=== PATIENT | female | born 1990 | race Caucasian/White ===

== ENCOUNTER 2017-03-19 13:41 | Emergency (ER) | payer SELFPAY ==
[2017-03-19] MEDS ORDERED: Ketorolac 60 MG/2 ML SDV IM ONE (16:13)
--- NOTE | 2017-03-19 16:13 | EDM.PDOC ---
ED HPI GENERAL MEDICAL PROBLEM - General Chief Complaint: Lower Extremity Injury/Pain Stated Complaint: HURT ANKLE Time Seen by Provider: 03/19/17 14:30 Source of Information: Reports: Patient History Limitations: Reports: No Limitations - History of Present Illness INITIAL COMMENTS - FREE TEXT/NARRATIVE: HISTORY AND PHYSICAL: History of present illness: [Patient slipped while getting out of her pickup late this morning rolling her right ankle. She is unable to bear weight due to pain. Cannot ambulate or move her ankle due to pain. She is brought in by her . She is taking no medication for her symptoms. No numbness or tingling just pain about the right ankle and lower leg.] Review of systems: As per history of present illness and below otherwise all systems reviewed and negative. Past medical history: As per history of present illness and as reviewed below otherwise noncontributory. Surgical history: As per history of present illness and as reviewed below otherwise noncontributory. Social history: No reported history of drug or alcohol abuse. Family history: As per history of present illness and as reviewed below otherwise noncontributory. Physical exam: HEENT: Atraumatic, normocephalic., pupils reactive, negative for conjunctival pallor or scleral icterus, mucous membranes moist, throat clear, neck supple, nontender, trachea midline. Lungs: Clear to auscultation, breath sounds equal bilaterally, chest nontender. Heart: S1S2, regular, negative for clicks, rubs, or JVD. Abdomen: Soft, nondistended, nontender. Negative for masses or hepatosplenomegaly. Negative for costovertebral tenderness. Pelvis: Stable nontender. Genitourinary: Deferred. Rectal: Deferred. Extremities: Swelling and ecchymosis is appreciated to the right lateral malleolus. Is exquisitely tender with palpation. Does not perform range of motion and requests due to pain. Pulses are strong. Cap refill less than 2 seconds. Neurovascular unremarkable. Neuro: Awake, alert, oriented. Motor and sensory unremarkable throughout. Exam nonfocal. Diagnostics: [Right tib-fib x-ray, right ankle x-ray, right foot x-ray] Therapeutics: [Toradol 60 mg IM] Impression: [Right ankle pain] Plan: [X-rays are negative for fracture. Recommmend Rest ice and anti-inflammatories elevation. She is given a walking boot and instructed to wear as much as possible. Crutches as needed. Discussed need for follow-up with local PCP. She is in agreement with today's plan all questions are answered concerns are addressed.] Definitive disposition and diagnosis as appropriate pending reevaluation and review of above. Right Ankle Pain Score (Numeric/FACES): 8 - Related Data Allergies Allergy/AdvReac Type Severity Reaction Status Date / Time No Known Allergies Allergy Verified 03/19/17 14:15 Home Meds: Home Meds . [No Known Home Meds] 03/19/17 [History] Past Medical History Cardiovascular History: Reports: Other (See Below) Other Cardiovascular History: mitral valve prolapse Musculoskeletal History: Reports: Other (See Below) Other Musculoskeletal History: Marfan syndrome - Infectious Disease History Infectious Disease History: Reports: Chicken Pox Social & Family History - Family History Family Medical History: Noncontributory - Tobacco Use Smoking Status *Q: Never Smoker - Recreational Drug Use Recreational Drug Use: No Review of Systems - Review of Systems Review Of Systems: ROS reveals no pertinent complaints other than HPI. ED EXAM, GENERAL - Physical Exam Exam: See Below Course - Vital Signs Last Recorded V/S: Last Vital Signs Temp 98.5 F 03/19/17 14:14 Pulse 107 H 03/19/17 14:14 Resp 16 03/19/17 14:14 BP 125/65 03/19/17 14:14 Pulse Ox 98 03/19/17 14:14 - Orders/Labs/Meds Orders: Active Orders 24 hr Category Date Time Status Ankle Min 3V Rt [CR] Stat Exams 03/19/17 14:42 Taken Foot 2V Rt [CR] Stat Exams 03/19/17 14:42 Taken Tibia Fibula Rt [CR] Stat Exams 03/19/17 14:42 Taken Labs: Laboratory Tests 03/19/17 Range/Units 14:55 HCG, Qual NEGATIVE (NEG) Meds: Medications Discontinued Medications Generic Name Dose Route Start Last Admin Trade Name Freq PRN Reason Stop Dose Admin Ketorolac Tromethamine 60 mg 03/19/17 16:13 03/19/17 16:46 Toradol IM 03/19/17 16:14 60 mg ONETIME ONE Administration Departure - Departure Time of Disposition: 16:40 Disposition: Home, Self-Care 01 Condition: Good Clinical Impression: Ankle pain, right - Discharge Information Instructions: Ankle Pain Referrals: PCP,Not In Area [Primary Care Provider] - Forms: ED Department Discharge Additional Instructions: The following information is given to patients seen in the emergency department who are being discharged to home. This information is to outline your options for follow-up care. We provide all patients seen in our emergency department with a follow-up referral. The need for follow-up, as well as the timing and circumstances, are variable depending upon the specifics of your emergency department visit. If you don't have a primary care physician on staff, we will provide you with a referral. We always advise you to contact your personal physician following an emergency department visit to inform them of the circumstance of the visit and for follow-up with them and/or the need for any referrals to a consulting specialist. The emergency department will also refer you to a specialist when appropriate. This referral assures that you have the opportunity for follow-up care with a specialist. All of these measure are taken in an effort to provide you with optimal care, which includes your follow-up. Under all circumstances we always encourage you to contact your private physician who remains a resource for coordinating your care. When calling for follow-up care, please make the office aware that this follow-up is from your recent emergency room visit. If for any reason you are refused follow-up, please contact the [facility] emergency department at and asked to speak to the emergency department charge nurse. [facility] Primary Care [address] [place] [id number] Establish care with a local primary care provider. Take Tylenol alternating with ibuprofen as needed for pain and discomfort. Rest, ice, elevate leg as much as possible. Take pain medication as prescribed. Return to ER as needed as discussed. - My Orders Last 24 Hours: My Active Orders 03/19/17 14:42 Ankle Min 3V Rt [CR] Stat Foot 2V Rt [CR] Stat Tibia Fibula Rt [CR] Stat - Assessment/Plan Last 24 Hours: My Active Orders 03/19/17 14:42 Ankle Min 3V Rt [CR] Stat Foot 2V Rt [CR] Stat Tibia Fibula Rt [CR] Stat
--- NOTE | 2017-03-20 13:03 | CR ---
EXAM DATE: 03/19/17 PATIENT'S AGE: 26 Patient: MONIKA CASTILLO Facility: [place], [place] Site . Site : 1990 Study: XRay Extremity Right TIB FIB [id number] 4:14:30 PM Ordering Physician: Doctor Vickers Final Report: Indication: Right ankle pain. Slipped on ice. Technique: Two views of the right tibia and fibula. Comparison: Today`s right ankle x-rays. Findings: No fracture or other abnormality. Impression: Negative right tibia and fibula. Dictated by Preet Covarrubias MD @ Mar 19 2017 4:15PM (Electronic Signature) Report Signed by Proxy. SVETLANA
--- NOTE | 2017-03-20 13:04 | CR ---
EXAM DATE: 03/19/17 PATIENT'S AGE: 26 Patient: MONIKA CASTILLO Facility: [place], [place] Site . Site : 1990 Study: XRay Extremity Right FOOT MW [id number] 4:16:44 PM Ordering Physician: Doctor Vickers Final Report: Indication: Right foot pain. Slipped on ice. Technique: Two views of the right foot. Comparison: Today`s right ankle x-rays. Findings: No soft tissue swelling, fracture or other abnormality. Impression: Negative right foot. Dictated by Preet Covarrubias MD @ Mar 19 2017 4:24PM (Electronic Signature) Report Signed by Proxy. SVETLANA
--- NOTE | 2017-03-20 13:05 | CR ---
EXAM DATE: 03/19/17 PATIENT'S AGE: 26 Patient: MONIKA CASTILLO Facility: [place], [place] Site . Site : 1990 Study: XRay Extremity Right ANKLE [id number] 4:17:27 PM Ordering Physician: Doctor Vickers Final Report: Indication: Right ankle pain. Slipped on ice. Technique: Three views of the right ankle. Comparison: Today`s right foot and tib-fib x-rays. Findings: Mild soft tissue swelling laterally. No fracture or other abnormality. Impression: Lateral ankle sprain. Dictated by Preet Covarrubias MD @ Mar 19 2017 4:23PM (Electronic Signature) Report Signed by Proxy. SVETLANA
== END 2017-03-19 17:08 | disposition home or self-care (01) ==
LOC: MW.ED 13:41
DX: S90.01XA Contusion of right ankle, initial encounter (principal); W00.0XXA Fall on same level due to ice and snow, initial encounter
CPT/HCPCS: 36415; 73590; 73610; 73620; 84703; 96372; 99283; J1885; 99282

== ENCOUNTER 2017-12-29 14:16 | Emergency (ER) | payer MEDICAID, OTHER ==
--- NOTE | 2017-12-29 14:39 | EDM.PDOC ---
ED HPI GENERAL MEDICAL PROBLEM - General Chief Complaint: General Stated Complaint: RECTAL PROBLEMS Time Seen by Provider: 12/29/17 14:34 Source of Information: Reports: Patient History Limitations: Reports: No Limitations - History of Present Illness INITIAL COMMENTS - FREE TEXT/NARRATIVE: HISTORY AND PHYSICAL: 27-year-old female presents with hemorrhoid pain History of Present Illness: []Patient has a hemorrhoid that is bothering her the [id number] medication is not working and she is going to ride in a car back to [place]. No other complaints Review of Systems: As per history of present illness and below otherwise all systems reviewed and negative. Past medical history: As per history of present illness and as reviewed below otherwise noncontributory. Surgical history: As per history of present illness and as reviewed below otherwise noncontributory. Social history: No reported history of drug or alcohol abuse. Family history: As per history of present illness and as reviewed below otherwise noncontributory. Physical exam: Alert and oriented female answering questions appropriately in full sentences without any shortness of breath. She is nontoxic in appearance. Vital signs have been reviewed. HEENT: Atraumatic, normocehpalic, pupils reactive, negative for conjunctival pallor or scleral icterus, mucous membranes moist, throat clear, neck supple, nontender, trachea midline. Lungs: Clear to auscultation, breath sounds equal bilaterally, chest non tender. Heart: S1S2, regular, negative for clicks, rubs, or JVD. Abdomen: Soft, nondistended, nontender. Negative for masses or hepatossplenmegaly. Negative for costovertebral tenderness. Pelvis: Stable nontender. Genitourinary: Deferred. Rectal: Small hemorrhoid at the 12 o'clock position is not thrombosed. Mild erythema. Extremities: Atraumatic, negative for cords or calf pain. Neurovascular unremarkable. Neuro: Awake, alert, oriented. Cranial nerves II through XII unremarkable. Cerebellum unremarkable. Motor and sensory unremarkable throughout. Exam nonfocal. Diagnostics: [] Therapeutics: [] Impression: []Hemorrhoid Plan: []Discharged home Sitz baths Proctocort HC cream follow up with your PCP next week. Definitive disposition and diagnosis as appropriate pending reevaluation and review of above. Onset: Sudden Duration: Day(s):, Getting Worse Location: Reports: Other (Docs) rectum Pain Score (Numeric/FACES): 8 - Related Data Allergies Allergy/AdvReac Type Severity Reaction Status Date / Time david arthur Allergy Rash Verified 12/29/17 14:25 Home Meds: Home Meds Hydrocortisone [Proctocort] 28.35 gm RC TID #1 cream..g. 12/29/17 [Rx] Past Medical History Cardiovascular History: Reports: Other (See Below) Other Cardiovascular History: mitral valve prolapse [employer] History: Reports: Musculoskeletal History: Reports: Other (See Below) Other Musculoskeletal History: Marfan syndrome - Infectious Disease History Infectious Disease History: Reports: Chicken Pox - Past Surgical History Cardiovascular Surgical History: Reports: None Female Surgical History: Reports: Section, Tubal Ligation Social & Family History - Family History Family Medical History: Noncontributory - Tobacco Use Smoking Status *Q: Never Smoker - Recreational Drug Use Recreational Drug Use: No ED ROS GENERAL - Review of Systems Review Of Systems: ROS reveals no pertinent complaints other than HPI. ED EXAM, GENERAL - Physical Exam Exam: See Below (see dictation) Course - Vital Signs Last Recorded V/S: Last Vital Signs Temp 36.6 C 12/29/17 14:26 Pulse 90 12/29/17 14:26 Resp 16 12/29/17 14:26 BP 122/87 12/29/17 14:26 Pulse Ox 97 12/29/17 14:26 Departure - Departure Time of Disposition: 14:37 Disposition: Home, Self-Care 01 Condition: Good Clinical Impression: Acute hemorrhoid - Discharge Information *PRESCRIPTION DRUG MONITORING PROGRAM REVIEWED*: Not Applicable *COPY OF PRESCRIPTION DRUG MONITORING REPORT IN PATIENT GRACE: Not Applicable Prescriptions: Hydrocortisone [Proctocort] 28.35 gm RC TID #1 cream..g. Referrals: PCP,None [Primary Care Provider] -
== END 2017-12-29 15:01 | disposition home or self-care (01) ==
LOC: MW.ED 14:16
DX: K64.9 Unspecified hemorrhoids (principal); Z91.09 Other allergy status, other than to drugs and biological substances
CPT/HCPCS: 99282

== ENCOUNTER 2019-02-11 10:24 | Emergency (ER) | payer MEDICAID, OTHER ==
[2019-02-11] MEDS ORDERED: Sodium Chloride 0.9% 1,000 ML IV ONE (10:41)
[2019-02-11] MEDS ORDERED: Ketorolac 30 MG/ML SDV IVPUSH ONE (10:42)
[2019-02-11] MEDS ORDERED: Ondansetron 4 MG/2 ML SDV IVPUSH ONE (10:42)
--- NOTE | 2019-02-11 11:00 | EDM.PDOC ---
ED HPI GENERAL MEDICAL PROBLEM - General Chief Complaint: General Stated Complaint: STOMACH PAIN, WEAK, DIZZY Time Seen by Provider: 02/11/19 10:25 Source of Information: Reports: Patient History Limitations: Reports: No Limitations - History of Present Illness INITIAL COMMENTS - FREE TEXT/NARRATIVE: HISTORY AND PHYSICAL: History of present illness: Patient is a 28-year-old female presents to the ED today with concern of right- sided abdominal pain since this morning. Patient rates the pain a 9 out of 10 and states that it comes and goes. Patient states when the pain is higher she feels nauseous and has vomited a few times since this morning. Patient states she has not ate or drank much today due to the pain and discomfort. Patient states she has a history of Marfan's, iron deficiency anemia, and hypertension but denies any other health history. Patient states she has a history of tubal ligation and has 1 ovary removed due to frequent cysts but denies any other abdominal surgeries. Patient denies fever, chills, chest pain, shortness of breath, or cough. Denies headache, neck stiff ness, change in vision, syncope, or near syncope. Denies diarrhea, constipation, or dysuria. Has not noted any blood in urine or stool. Review of systems: As per history of present illness and below otherwise all systems reviewed and negative. Past medical history: As per history of present illness and as reviewed below otherwise noncontributory. Surgical history: As per history of present illness and as reviewed below otherwise noncontributory. Social history: See social history for further information Family history: As per history of present illness and as reviewed below otherwise noncontributory. Physical exam: General: Patient is alert, oriented, and in no acute distress. Patient sitting comfortably on exam table. HEENT: Atraumatic, normocephalic, pupils equal and reactive bilaterally, negative for conjunctival pallor or scleral icterus, mucous membranes dry, TMs normal bilaterally, throat clear, neck supple, nontender, trachea midline. No drooling or trismus noted. No meningeal signs. No hot potato voice noted. Lungs: Clear to auscultation, breath sounds equal bilaterally, chest nontender. Heart: S1S2, regular rate and rhythm without overt murmur Abdomen: Soft, nondistended. Moderate pain to palpation of right sided abdomen without guarding or rebound. Negative for masses or hepatosplenomegaly. Negative for costovertebral tenderness. Pelvis: Stable nontender. Genitourinary: Deferred. Rectal: Tone intact. Hemoccult negative. Skin: Intact, warm, dry. No lesions or rashes noted. Extremities: Atraumatic, negative for cords or calf pain. Neurovascular unremarkable. Neuro: Awake, alert, oriented. Cranial nerves II through XII unremarkable. Cerebellum unremarkable. Motor and sensory unremarkable throughout. Exam nonfocal. Notes: expresses resolution of symptoms today and the ED. Discussed the importance for follow-up with primary care provider. Voices understanding and is agreeable to plan of care. Denies any further questions or concerns at this time. Diagnostics: CBC, CMP, UA, lipase, EKG, hemoccult, abd/pelvic CT Therapeutics: Saline, Toradol, Zofran Prescription: Zofran Impression: Right sided abdominal pain Nausea with vomiting H/O iron deficiency anemia Plan: 1. Take medication as prescribed. You can alternate ibuprofen and Tylenol as directed for pain and discomfort. 2. Follow-up with your primary care provider as discussed. Return to the ED as needed and as discussed. Definitive disposition and diagnosis as appropriate pending reevaluation and review of above. abd Pain Score (Numeric/FACES): 7 - Related Data Allergies Allergy/AdvReac Type Severity Reaction Status Date / Time brightdarryl jerson Allergy Rash Verified 12/29/17 14:25 Home Meds: Home Meds Lisinopril 2.5 mg PO 02/11/19 [History] Past Medical History Cardiovascular History: Reports: Other (See Below) Other Cardiovascular History: mitral valve prolapse, Morphans? [employer] History: Reports: Musculoskeletal History: Reports: Other (See Below) Other Musculoskeletal History: Marfan syndrome - Infectious Disease History Infectious Disease History: Reports: Chicken Pox - Past Surgical History Cardiovascular Surgical History: Reports: None Female Surgical History: Reports: Section, Tubal Ligation Other Female Surgeries/Procedures: ovary removed, 2 c-sections Social & Family History - Family History Family Medical History: Noncontributory - Tobacco Use Smoking Status *Q: Never Smoker - Recreational Drug Use Recreational Drug Use: No ED ROS GENERAL - Review of Systems Review Of Systems: ROS reveals no pertinent complaints other than HPI. ED EXAM, GENERAL - Physical Exam Exam: See Below (See dictation) Course - Vital Signs Last Recorded V/S: Last Vital Signs Temp 97.3 F 02/11/19 11:55 Pulse 75 02/11/19 11:55 Resp 15 02/11/19 11:55 BP 106/61 02/11/19 11:55 Pulse Ox 100 02/11/19 11:55 - Orders/Labs/Meds Orders: Active Orders 24 hr Category Date Time Status EKG Documentation Completion [RC] STAT Care 02/11/19 10:41 Active Labs: Laboratory Tests 02/11/19 02/11/19 02/11/19 Range/Units 10:53 11:00 11:00 WBC 9.03 (4.0-11.0) K/uL RBC 5.14 (4.30-5.90) M/uL Hgb 9.7 L (12.0-16.0) g/dL Hct 34.4 L (36.0-46.0) % MCV 66.9 L (80.0-98.0) fL MCH 18.9 L (27.0-32.0) pg MCHC 28.2 L (31.0-37.0) g/dL RDW Std Deviation 40.4 (28.0-62.0) fl RDW Coeff of Geo 17 H (11.0-15.0) % Plt Count 342 (150-400) K/uL MPV 8.90 (7.40-12.00) fL Neut % (Auto) 70.0 (48.0-80.0) % Lymph % (Auto) 20.8 (16.0-40.0) % [place] % (Auto) 7.2 (0.0-15.0) % Eos % (Auto) 1.8 (0.0-7.0) % Baso % (Auto) 0.2 (0.0-1.5) % Neut # (Auto) 6.3 H (1.4-5.7) K/uL Lymph # (Auto) 1.9 (0.6-2.4) K/uL [place] # (Auto) 0.7 (0.0-0.8) K/uL Eos # (Auto) 0.2 (0.0-0.7) K/uL Baso # (Auto) 0.0 (0.0-0.1) K/uL Nucleated RBC % 0.0 /100WBC Nucleated RBCs # 0 K/uL Sodium 139 (136-145) mmol/L Potassium 3.8 (3.5-5.1) mmol/L Chloride 103 (98-107) mmol/L Carbon Dioxide 23.7 (21.0-32.0) mmol/L BUN 13 (7.0-18.0) mg/dL Creatinine 0.6 (0.6-1.0) mg/dL Est Cr Clr Drug Dosing 143.33 mL/min Estimated GFR (MDRD) > 60.0 ml/min Glucose 95 (74-106) mg/dL Calcium 8.8 (8.5-10.1) mg/dL Total Bilirubin 0.5 (0.2-1.0) mg/dL AST 13 L (15-37) IU/L ALT 16 (14-63) IU/L Alkaline Phosphatase 75 (46-116) U/L Total Protein 8.3 H (6.4-8.2) g/dL Albumin 4.0 (3.4-5.0) g/dL Globulin 4.3 H (2.6-4.0) g/dL Albumin/Globulin Ratio 0.9 (0.9-1.6) Lipase 68 L (73-393) U/L Urine Color YELLOW Urine Appearance CLEAR Urine pH 5.5 (5.0-8.0) Ur Specific [place] >= 1.030 (1.001-1.035) Urine Protein NEGATIVE (NEGATIVE) mg/dL Urine Glucose (UA) NEGATIVE (NEGATIVE) mg/dL Urine Ketones NEGATIVE (NEGATIVE) mg/dL Urine Occult Blood TRACE-INTACT H (NEGATIVE) Urine Nitrite NEGATIVE (NEGATIVE) Urine Bilirubin NEGATIVE (NEGATIVE) Urine Urobilinogen 0.2 (<2.0) EU/dL Ur Leukocyte Esterase NEGATIVE (NEGATIVE) Urine RBC 0-2 (0-2/HPF) Urine WBC 0-2 (0-5/HPF) Ur Epithelial Cells FEW (NONE-FEW) Urine Bacteria FEW (NEGATIVE) Urine Mucus LIGHT (NONE-MOD) Meds: Medications Discontinued Medications Generic Name Dose Route Start Last Admin Trade Name Freq PRN Reason Stop Dose Admin Sodium Chloride 1,000 mls @ 999 mls/hr 02/11/19 10:41 02/11/19 11:02 Normal Saline IV 02/11/19 11:41 999 mls/hr BOLUS ONE Administration Iopamidol 100 ml 02/11/19 12:35 02/11/19 12:38 Isovue Multipack-370 (76%) IVPUSH 02/11/19 12:36 100 ml ONETIME STA Administration Ketorolac Tromethamine 30 mg 02/11/19 10:42 02/11/19 11:04 Toradol IVPUSH 02/11/19 10:43 30 mg ONETIME ONE Administration Ondansetron HCl 4 mg 02/11/19 10:42 02/11/19 11:02 Zofran IVPUSH 02/11/19 10:43 4 mg ONETIME ONE Administration Departure - Departure Time of Disposition: 13:21 Disposition: Home, Self-Care 01 Clinical Impression: Right sided abdominal pain, History of iron deficiency anemia Nausea and vomiting Qualifiers: Vomiting type: unspecified Vomiting Intractability: non-intractable Qualified Code(s): R11.2 - Nausea with vomiting, unspecified - Discharge Information Referrals: PCP,Not In Area [Primary Care Provider] - Forms: ED Department Discharge Additional Instructions: The following information is given to patients seen in the emergency department who are being discharged to home. This information is to outline your options for follow-up care. We provide all patients seen in our emergency department with a follow-up referral. The need for follow-up, as well as the timing and circumstances, are variable depending upon the specifics of your emergency department visit. If you don't have a primary care physician on staff, we will provide you with a referral. We always advise you to contact your personal physician following an emergency department visit to inform them of the circumstance of the visit and for follow-up with them and/or the need for any referrals to a consulting specialist. The emergency department will also refer you to a specialist when appropriate. This referral assures that you have the opportunity for follow-up care with a specialist. All of these measure are taken in an effort to provide you with optimal care, which includes your follow-up. Under all circumstances we always encourage you to contact your private physician who remains a resource for coordinating your care. When calling for follow-up care, please make the office aware that this follow-up is from your recent emergency room visit. If for any reason you are refused follow-up, please contact the [facility] Emergency Department at and asked to speak to the emergency department charge nurse. RUSSEL Rivera [facility] Primary Care [address] [place] [address] [facility] [address] [place] [id number] 1. Take medication as prescribed. You can alternate ibuprofen and Tylenol as directed for pain and discomfort. 2. Follow-up with your primary care provider as discussed. Return to the ED as needed and as discussed. - My Orders Last 24 Hours: My Active Orders 02/11/19 10:41 EKG Documentation Completion [RC] STAT - Assessment/Plan Last 24 Hours: My Active Orders 02/11/19 10:41 EKG Documentation Completion [RC] STAT
[2019-02-11 11:34] LABS: BLOOD UREA NITROGEN,BUN 13 mg/dL (7.0-18.0); CARBON DIOXIDE,CO2 23.7 mmol/L (21.0-32.0); CHLORIDE,CL 103 mmol/L (98-107); GLUCOSE RANDOM 95 mg/dL (74-106); LIPASE 68 U/L (73-393); POTASSIUM,K 3.8 mmol/L (3.5-5.1); SODIUM,NA 139 mmol/L (136-145)
[2019-02-11] MEDS ORDERED: Iopamidol 755 MG/ML 500 ML Multipack Bottle IVPUSH STA (12:35)
--- NOTE | 2019-02-11 13:02 | CT ---
CT abdomen and pelvis Technique: Multiple axial sections were obtained from above the dome of the diaphragm inferiorly through the pubic symphysis. Intravenous contrast was utilized. No oral contrast has been given. Comparison: No prior abdominal imaging is available. Findings: Visualized lung bases show nothing acute. Liver shows no focal parenchymal abnormality. Spleen appears within normal limits. Adrenal glands show no nodule. Gallbladder contains no calcified gallstones. Pancreas is within normal limits. Kidneys show symmetric contrast enhancement without hydronephrosis or mass. Several calcifications are seen within both kidneys compatible with nonobstructing renal calculi. Aorta shows no aneurysm. No retroperitoneal adenopathy or mesenteric abnormalities are seen. Appendix is seen and is normal in size. No pelvic mass or adenopathy is seen. No free fluid or inflammatory change is identified. Bone window settings were reviewed which appear within normal limits for the patient's age. Impression: Nonobstructing renal calculi. No additional abnormality is appreciated on CT study of the abdomen and pelvis. Diagnostic code #3 MTDD
== END 2019-02-11 13:35 | disposition home or self-care (01) ==
LOC: MW.ED 10:24
DX: R10.9 Unspecified abdominal pain (principal); R11.2 Nausea with vomiting, unspecified; Z86.2 Personal history of diseases of the blood and blood-forming organs and certain disorders involving the immune mechanism; Z98.51 Tubal ligation status
CPT/HCPCS: 36415; 74177; 80053; 81001; 83690; 85025; 93005; 96361; 96374; 96375; 99284; J1885; J2405; J7040; Q9967